=== PATIENT | male | born 1965 | race African-American/Black ===

== ENCOUNTER 2018-09-12 19:54 | Inpatient (IN) | payer OTHER ==
--- NOTE | 2018-09-13 00:14 | HP ---
"COWS - Scale Resting Pulse: 0= [place] 80 or Below Sweatin=Flushed/Facial Moisture Restless Observation: 1= Difficult to Sit Still Pupil Size: 2= Moderately Dilated (Pupils =5 mm) Bone or Joint Aches: 2= Severe Diffuse Aches Runny Nose/ Eye Tearin= Runny Nose/Eyes GI Upset > 30mins: 2= Nausea/Diarrhea Tremor Observation: 2= Slight Tremor Visible Yawning Observation: 1= 1-2x During Session Anxiety or Irritability: 1=Feels Anxious/Irritable Goose Flesh Skin: 0=Smooth Skin COWS Score: 15 CIWA Score - Admission Criteria OASAS Guidelines: Admission for Medically Managed Detox: Requires at least one of the followin. CIWA greater than 12 2. Seizures within the past 24 hours 3. Delirium tremens within the past 24 hours 4. Hallucinations within the past 24 hours 5. Acute intervention needed for co occurring medical disorder 6. Acute intervention needed for co occurring psychiatric disorder 7. Severe withdrawal that cannot be handled at a lower level of care (continued vomiting, continued diarrhea, abnormal vital signs) requiring intravenous medication and/or fluids 8. Admission ROS [facility] Chief Complaint: Here for heroin withdrawal. Allergies/Adverse Reactions: Allergies Allergy/AdvReac Type Severity Reaction Status Date / Time No Allergy Information Allergy Verified 09/13/18 00:18 Available History of Present Illness: Here for opiate detox. Heroin use since age 16, Intranasal. One overdose 5 years ago. No Narcan Kit ( Homeless) Cocaine use since age 15. Smokes Nicotine use since age 9. Alcohol use began at 13. Been weaning self off. States no drink for 2 days. Denies seizures or blackouts. Hx: Asthma - denies recent exacerbation. Sadness/depression. Denies thoughts of harming self or others. Search Terms: Joan Mo, 1965 Search Date: 09/13/2018 12:13:31 AM The Drug Utilization Report below displays all of the controlled substance prescriptions, if any, that your patient has filled in the last twelve months. The information displayed on this report is compiled from pharmacy submissions to the Department, and accurately reflects the information as submitted by the pharmacies. This report was requested by: Lisa Louise | Reference #: [id number] There are no results for the search terms that you entered. Exam Limitations: No Limitations - Ebola screening Have you traveled outside of the country in the last 21 days: No (N) Have you had contact with anyone from an Ebola affected area: No Have you been sick,other than usual withdrawal symptoms: No Do you have a fever: No - Review of Systems Constitutional: Chills, Diaphoresis EENT: reports: Blurred Vision, Nose Congestion, Dental Problems (Broken. Chews and swallows ok.) Respiratory: reports: No Symptoms reported Cardiac: reports: No Symptoms Reported GI: reports: Diarrhea (brownish, watery), Nausea : reports: No Symptoms Reported Musculoskeletal: reports: Back Pain (r/t withdrawal), Other (Leg pain r/t withdrawal) Integumentary: reports: Other (Peeling skin on feet) Neuro: reports: Numbness (Occ numbness at bottom of feet), Tremors, Unsteady Gait (r/t pain in bottom of feet - bunions) Endocrine: reports: No Symptoms Reported Hematology: reports: Blood Clots (3 years ago - went to lungs. Not on meds) Psychiatric: reports: Judgement Intact, Orientated x3, Agitated, Anxious, Depressed (Sadness/depression. Denies thoughts of harming self or others.) Patient History - Patient Medical History Hx Asthma: Yes (No recent exacerbation) Hx Cardiac Disorders: No Hx Hypertension: No HX Cerebrovascular Accident: No Hx Seizures: No Hx Liver Disease: No Hx Genitourinary Disorders: No Hx Sexually Transmitted Disorders: No Hx Thyroid Disease: No Hx Human Immunodeficiency Virus (HIV): No - Patient Surgical History Hx Orthopedic Surgery: Yes (2013 - (L) knee) Anesthesia Reaction: No - PPD History Previous Implant?: Yes Documented Results: Negative w/o proof Implanted On Prior [facility] Admission?: No PPD to be Administered?: Yes - Smoking Cessation Smoking history: Current every day smoker Have you smoked in the past 12 months: Yes Aproximately how many cigarettes per day: 20 Hx Chewing Tobacco Use: No Initiated information on smoking cessation: Yes 'Breaking Loose' booklet given: 09/13/18 - Substance & Tx. History Hx Alcohol Use: Yes Hx Substance Use: Yes Substance Use Type: Alcohol, Cocaine, Heroin Hx Substance Use Treatment: Yes (first detox) Admission Physical Exam BHS - Physical General Appearance: Yes: Disheveled, Mild Distress, Tremorous, Sweating, Anxious HEENTM: Yes: EOMI, Normocephalic, Normal Voice, FRANCISCO (Pupils = 5 mm), Pharynx Normal, Rhinorrhea Respiratory: Yes: Lungs Clear, Normal Breath Sounds, No Respiratory Distress Neck: Yes: No masses,lesions,Nodules, Supple Breast: Yes: Breast Exam Deferred Cardiology: Yes: Regular Rhythm, Regular Rate, S1, S2 Abdominal: Yes: Non Tender, Soft, Increased Bowel Sounds Genitourinary: Yes: Within Normal Limits Back: Yes: Normal Inspection Musculoskeletal: Yes: full range of Motion, Gait Steady Extremities: Yes: Normal Capillary Refill, Normal Range of Motion, Tremors ( Mild tremors) Neurological: Yes: front desk lead II-XII NML intact, Fully Oriented, Alert, Motor Strength 5/5, Normal Mood/Affect Integumentary: Yes: Normal Color, Dry (Except for increased facial moisture), Warm, Other (dry, flaky skin on feet) Lymphatic: Yes: Within Normal Limits - Diagnostic (1) Opioid dependence with withdrawal Current Visit: Yes Status: Acute (2) Nicotine dependence, uncomplicated Current Visit: Yes Status: Chronic Qualifiers: Nicotine product type: cigarettes Qualified Code(s): F17.210 - Nicotine dependence, cigarettes, uncomplicated (3) History of asthma Current Visit: Yes Status: Chronic Comment: No recent exacerbation (4) Tinea pedis Current Visit: Yes Status: Chronic Qualifiers: Laterality: bilateral Qualified Code(s): B35.3 - Tinea pedis Cleared for Admission S - Detox or Rehab [facility] Level of Care: Medically Managed Detox Regimen/Protocol: Methadone Inpatient Rehab Admission - Rehab Decision to Admit Inpatient rehab admission?: No"
[2018-09-13] MEDS ORDERED: METHADONE HCL 10 MG TABLET (FOR DETOX USE ONLY) PO ONE ×3 (03:46→23:00)
[2018-09-13] MEDS ORDERED: MAGNESIUM HYDROX 2400MG/30ML ORAL SUSPENSION 30 ML CUP PO PRN (03:46)
[2018-09-13] MEDS ORDERED: MAG HYDROX/AL HYDROX/SIMETH 30 ML UNIT-DOSE CUP PO PRN (03:46)
[2018-09-13] MEDS ORDERED: ACETAMINOPHEN 325 MG TABLET (FP) PO PRN (03:46)
[2018-09-13] MEDS ORDERED: guaiFENesin/D-METHORPHAN HB 10 ML UNIT-DOSE CUPS PO PRN (03:46)
[2018-09-13] MEDS ORDERED: LOPERAMIDE HCL 2 MG CAPSULE PO PRN (03:46)
[2018-09-13] MEDS ORDERED: MAGNESIUM CITRATE 300 ML BOTTLE PO PRN (03:46)
[2018-09-13] MEDS ORDERED: MENTHOL/PHENOL 1 EACH UD MM PRN (03:46)
[2018-09-13] MEDS ORDERED: NICOTINE POLACRILEX 2 MG GUM BC PRN (03:46)
[2018-09-13] MEDS: diazePAM 5 MG TABLET PO PRN ×4 (05:58→22:25)
[2018-09-13] MEDS: P-EPHED 60MG/TRIPROLIDI 2.5MG TABLET PO PRN ×2 (06:01→22:26)
[2018-09-13 10:19] LABS: HEMATOCRIT 40.9 % (35.4-49); HEMOGLOBIN 13.6 GM/dL (11.7-16.9); MCH 29.5 pg (25.7-33.7); MCHC 33.2 g/dl (32.0-35.9); MEAN CELL VOLUME 88.9 fl (80-96); MEAN PLT VOLUME 8.8 fl (7.5-11.1); PLATELET COUNT 246 K/MM3 (134-434); RDW 14.5 % (11.9-15.9); WHITE BLOOD COUNT 4.1 K/mm3 (4.0-10.0)
[2018-09-13] MEDS: NICOTINE 21 MG/24 HOURS TOPICAL PATCH TD SCH (10:27)
[2018-09-13] MEDS: PRENATAL VITAMINS W/ FOLIC ACID TABLET (FP) PO SCH (10:27)
[2018-09-13 10:59] LABS: ALBUMIN 3.6 g/dl (3.4-5.0); ALK PHOS 74 U/L (45-117); ANION GAP 6 MMOL/L (8-16); BILIRUBIN,TOTAL 0.3 mg/dL (0.2-1); BLOOD UREA NITROGEN 11 mg/dL (7-18); CALCIUM 8.3 mg/dL (8.5-10.1); CHLORIDE 108 mmol/L (98-107); CO2 28 mmol/L (21-32); GLUCOSE,RANDOM 113 mg/dL (74-106); POTASSIUM 4.3 mmol/L (3.5-5.1); SGOT/AST 23 U/L (15-37); SGPT/ALT 28 U/L (13-61); SODIUM 142 mmol/L (136-145); TOT PROT 6.2 g/dl (6.4-8.2)
--- NOTE | 2018-09-13 16:16 | PN ---
S COWS - Scale Resting Pulse: 1= [place] 81-100 Sweatin= Chills/Flushing Restless Observation: 1= Difficult to Sit Still Pupil Size: 1= Pupils >than Normal Bone or Joint Aches: 2= Severe Diffuse Aches Runny Nose/ Eye Tearin= Nasal Congestion GI Upset > 30mins: 1= Stomach Cramp Tremor Observation of Outstretched Hands: 1= Tremor [place], Not Seen Yawning Observation: 1= 1-2x During Session Anxiety or Irritability: 1=Feels Anxious/Irritable Goose Flesh Skin: 0=Smooth Skin COWS Score: 11 S Progress Note (SOAP) Subjective: body ache joints pain anxiety tremor sweating Objective: 09/13/18 16:16 Vital Signs Temperature 98.1 F 09/13/18 13:40 Pulse Rate 56 L 09/13/18 13:40 Respiratory Rate 18 09/13/18 13:40 Blood Pressure 122/67 09/13/18 13:40 O2 Sat by Pulse Oximetry (%) Laboratory Last Values WBC 4.1 K/mm3 (4.0-10.0) 09/13/18 07:00 RBC 4.60 M/mm3 (4.00-5.60) 09/13/18 07:00 Hgb 13.6 GM/dL (11.7-16.9) 09/13/18 07:00 Hct 40.9 % (35.4-49) 09/13/18 07:00 MCV 88.9 fl (80-96) 09/13/18 07:00 MCH 29.5 pg (25.7-33.7) 09/13/18 07:00 MCHC 33.2 g/dl (32.0-35.9) 09/13/18 07:00 RDW 14.5 % (11.9-15.9) 09/13/18 07:00 Plt Count 246 K/MM3 (134-434) 09/13/18 07:00 MPV 8.8 fl (7.5-11.1) 09/13/18 07:00 Sodium 142 mmol/L (136-145) 09/13/18 07:00 Potassium 4.3 mmol/L (3.5-5.1) 09/13/18 07:00 Chloride 108 mmol/L (98-107) H 09/13/18 07:00 Carbon Dioxide 28 mmol/L (21-32) 09/13/18 07:00 Anion Gap 6 MMOL/L (8-16) L 09/13/18 07:00 BUN 11 mg/dL (7-18) 09/13/18 07:00 Creatinine 1.0 mg/dL (0.55-1.3) 09/13/18 07:00 Creat Clearance w eGFR > 60 (>60) 09/13/18 07:00 Random Glucose 113 mg/dL (74-106) H 09/13/18 07:00 Calcium 8.3 mg/dL (8.5-10.1) L 09/13/18 07:00 Total Bilirubin 0.3 mg/dL (0.2-1) 09/13/18 07:00 AST 23 U/L (15-37) 09/13/18 07:00 ALT 28 U/L (13-61) 09/13/18 07:00 Alkaline Phosphatase 74 U/L (45-117) 09/13/18 07:00 Total Protein 6.2 g/dl (6.4-8.2) L 09/13/18 07:00 Albumin 3.6 g/dl (3.4-5.0) 09/13/18 07:00 RPR Titer Nonreactive (NONREACTIVE) 09/13/18 07:00 lab noted Assessment: 09/13/18 16:16 withdrawal sx Plan: continue detox
[2018-09-13] MEDS ORDERED: MELATONIN 5 MG TABLETS PO PRN (22:00)
[2018-09-13] MEDS: THIAMINE HCL 100 MG TABLET (FP) PO SCH (22:25)
[2018-09-14] MEDS: IBUPROFEN 400 MG TABLET (FP) PO PRN (06:01)
[2018-09-14] MEDS: diazePAM 5 MG TABLET PO PRN ×3 (08:24→22:22)
[2018-09-14] MEDS ORDERED: METHADONE HCL 10 MG TABLET (FOR DETOX USE ONLY) PO ONE (10:00)
[2018-09-14] MEDS: PRENATAL VITAMINS W/ FOLIC ACID TABLET (FP) PO SCH (10:08)
[2018-09-14] MEDS: NICOTINE 21 MG/24 HOURS TOPICAL PATCH TD SCH (10:11)
[2018-09-14 10:32] LABS: URINE APPEARANCE CLEAR; URINE BILIRUBIN NEGATIVE (<2.0 mg/dL); URINE COLOR YELLOW; URINE GLUCOSE (UA) NEGATIVE (NEGATIVE); URINE KETONE NEGATIVE (NEGATIVE); URINE LEUK ESTERASE NEGATIVE (NEGATIVE); URINE NITRITE NEGATIVE (NEGATIVE); URINE PROTEIN NEGATIVE (NEGATIVE); URINE UROBILINOGEN NEGATIVE mg/dL (0.2-1.0)
[2018-09-14] MEDS ORDERED: BACLOFEN 10 MG TABLET (FP) PO ONE (11:25)
[2018-09-14] MEDS: LIDOCAINE 5% TOPICAL PATCH TP SCH (11:52)
--- NOTE | 2018-09-14 12:09 | PN ---
BHS COWS - Scale Resting Pulse: 0= [place] 80 or Below Sweatin= Chills/Flushing Restless Observation: 0= Sits Still Pupil Size: 1= Pupils >than Normal Bone or Joint Aches: 1= Mild Discomfort Runny Nose/ Eye Tearin= Nasal Congestion GI Upset > 30mins: 0= None Tremor Observation of Outstretched Hands: 1= Tremor [place], Not Seen Yawning Observation: 1= 1-2x During Session Anxiety or Irritability: 1=Feels Anxious/Irritable Goose Flesh Skin: 0=Smooth Skin COWS Score: 7 BHS Progress Note (SOAP) Subjective: back pain joints stiffness tremor mild sweating Objective: 09/14/18 12:08 Vital Signs Temperature 97.0 F L 09/14/18 09:53 Pulse Rate 87 09/14/18 09:53 Respiratory Rate 18 09/14/18 09:53 Blood Pressure 118/77 09/14/18 09:53 O2 Sat by Pulse Oximetry (%) Laboratory Last Values WBC 4.1 K/mm3 (4.0-10.0) 09/13/18 07:00 RBC 4.60 M/mm3 (4.00-5.60) 09/13/18 07:00 Hgb 13.6 GM/dL (11.7-16.9) 09/13/18 07:00 Hct 40.9 % (35.4-49) 09/13/18 07:00 MCV 88.9 fl (80-96) 09/13/18 07:00 MCH 29.5 pg (25.7-33.7) 09/13/18 07:00 MCHC 33.2 g/dl (32.0-35.9) 09/13/18 07:00 RDW 14.5 % (11.9-15.9) 09/13/18 07:00 Plt Count 246 K/MM3 (134-434) 09/13/18 07:00 MPV 8.8 fl (7.5-11.1) 09/13/18 07:00 Sodium 142 mmol/L (136-145) 09/13/18 07:00 Potassium 4.3 mmol/L (3.5-5.1) 09/13/18 07:00 Chloride 108 mmol/L (98-107) H 09/13/18 07:00 Carbon Dioxide 28 mmol/L (21-32) 09/13/18 07:00 Anion Gap 6 MMOL/L (8-16) L 09/13/18 07:00 BUN 11 mg/dL (7-18) 09/13/18 07:00 Creatinine 1.0 mg/dL (0.55-1.3) 09/13/18 07:00 Creat Clearance w eGFR > 60 (>60) 09/13/18 07:00 Random Glucose 113 mg/dL (74-106) H 09/13/18 07:00 Calcium 8.3 mg/dL (8.5-10.1) L 09/13/18 07:00 Total Bilirubin 0.3 mg/dL (0.2-1) 09/13/18 07:00 AST 23 U/L (15-37) 09/13/18 07:00 ALT 28 U/L (13-61) 09/13/18 07:00 Alkaline Phosphatase 74 U/L (45-117) 09/13/18 07:00 Total Protein 6.2 g/dl (6.4-8.2) L 09/13/18 07:00 Albumin 3.6 g/dl (3.4-5.0) 09/13/18 07:00 Urine Color Yellow 09/14/18 07:00 Urine Appearance Clear 09/14/18 07:00 Urine pH 7.0 (5.0-8.0) 09/14/18 07:00 Ur Specific [place] 1.015 (1.010-1.035) 09/14/18 07:00 Urine Protein Negative (NEGATIVE) 09/14/18 07:00 Urine Glucose (UA) Negative (NEGATIVE) 09/14/18 07:00 Urine Ketones Negative (NEGATIVE) 09/14/18 07:00 Urine Blood Negative (NEGATIVE) 09/14/18 07:00 Urine Nitrite Negative (NEGATIVE) 09/14/18 07:00 Urine Bilirubin Negative (<2.0 mg/dL) 09/14/18 07:00 Urine Urobilinogen Negative mg/dL (0.2-1.0) 09/14/18 07:00 Ur Leukocyte Esterase Negative (NEGATIVE) 09/14/18 07:00 RPR Titer Nonreactive (NONREACTIVE) 09/13/18 07:00 lab noted Assessment: 09/14/18 12:08 withdrawal sx Plan: continue detox lidocaine
--- NOTE | 2018-09-14 14:05 | EKG ---
Test Reason : Blood Pressure : / mmHG Vent. Rate : 050 BPM Atrial Rate : 050 BPM P-R Int : 158 ms QRS Dur : 084 ms QT Int : 460 ms P-R-T Axes : 057 063 051 degrees QTc Int : 419 ms SINUS BRADYCARDIA WITH SINUS ARRHYTHMIA OTHERWISE NORMAL ECG NO PREVIOUS ECGS AVAILABLE Confirmed by CODY POLLOCK MD ([id number]) on 09/14/2018 2:05:33 PM Referred By: Confirmed By:CODY POLLOCK MD
[2018-09-14 17:35] VITALS: BMI 24.4
[2018-09-14] MEDS: LIDOCAINE PATCH REMOVAL MC SCH (22:22)
[2018-09-14] MEDS: THIAMINE HCL 100 MG TABLET (FP) PO SCH (22:22)
[2018-09-14] MEDS: P-EPHED 60MG/TRIPROLIDI 2.5MG TABLET PO PRN (22:23)
[2018-09-15] MEDS ORDERED: METHADONE HCL 5 MG TABLET (FOR DETOX USE ONLY) PO ONE (10:00)
[2018-09-15] MEDS: PRENATAL VITAMINS W/ FOLIC ACID TABLET (FP) PO SCH (10:17)
[2018-09-15] MEDS: LIDOCAINE 5% TOPICAL PATCH TP SCH (10:17)
[2018-09-15] MEDS: diazePAM 5 MG TABLET PO PRN (10:18)
[2018-09-15] MEDS: NICOTINE 21 MG/24 HOURS TOPICAL PATCH TD SCH (10:18)
[2018-09-15] MEDS ORDERED: ALBUTEROL SO4 2.5/IPRATROPIUM 0.5 INH SOL 3 ML VIAL.NEB. NEB PRN (15:10)
--- NOTE | 2018-09-15 17:28 | PN ---
BHS Progress Note (SOAP) Subjective: Body Aches, Fatigue, Tremors. Objective: PATIENT A & O X 3. IN NO ACUTE DISTRESS. 09/15/18 17:27 Vital Signs Temperature 96.4 F L 09/15/18 09:36 Pulse Rate 75 09/15/18 09:36 Respiratory Rate 17 09/15/18 09:36 Blood Pressure 102/66 09/15/18 09:36 O2 Sat by Pulse Oximetry (%) Laboratory Tests 09/13/18 09/13/18 09/13/18 07:00 07:00 07:00 WBC 4.1 RBC 4.60 Hgb 13.6 Hct 40.9 MCV 88.9 MCH 29.5 MCHC 33.2 RDW 14.5 Plt Count 246 MPV 8.8 Sodium 142 Potassium 4.3 Chloride 108 H Carbon Dioxide 28 Anion Gap 6 L BUN 11 Creatinine 1.0 Creat Clearance w eGFR > 60 Random Glucose 113 H Calcium 8.3 L Total Bilirubin 0.3 AST 23 ALT 28 Alkaline Phosphatase 74 Total Protein 6.2 L Albumin 3.6 Urine Color Urine Appearance Urine pH Ur Specific [place] Urine Protein Urine Glucose (UA) Urine Ketones Urine Blood Urine Nitrite Urine Bilirubin Urine Urobilinogen Ur Leukocyte Esterase RPR Titer Nonreactive 09/14/18 07:00 WBC RBC Hgb Hct MCV MCH MCHC RDW Plt Count MPV Sodium Potassium Chloride Carbon Dioxide Anion Gap BUN Creatinine Creat Clearance w eGFR Random Glucose Calcium Total Bilirubin AST ALT Alkaline Phosphatase Total Protein Albumin Urine Color Yellow Urine Appearance Clear Urine pH 7.0 Ur Specific [place] 1.015 Urine Protein Negative Urine Glucose (UA) Negative Urine Ketones Negative Urine Blood Negative Urine Nitrite Negative Urine Bilirubin Negative Urine Urobilinogen Negative Ur Leukocyte Esterase Negative RPR Titer LABS NOTED. Assessment: 09/15/18 17:27 WITHDRAWAL SYMPTOMS. Plan: CONTINUE DETOX. INCREASE DAILY PO FLUID INTAKE. ENCOURAGE AMBULATION.
[2018-09-15] MEDS: THIAMINE HCL 100 MG TABLET (FP) PO SCH (22:59)
[2018-09-15] MEDS: LIDOCAINE PATCH REMOVAL MC SCH (22:59)
[2018-09-16] MEDS ORDERED: METHADONE HCL 5 MG TABLET (FOR DETOX USE ONLY) PO ONE (10:00)
[2018-09-16] MEDS: LIDOCAINE 5% TOPICAL PATCH TP SCH (10:19)
[2018-09-16] MEDS: PRENATAL VITAMINS W/ FOLIC ACID TABLET (FP) PO SCH (10:20)
[2018-09-16] MEDS: P-EPHED 60MG/TRIPROLIDI 2.5MG TABLET PO PRN (10:23)
[2018-09-16] MEDS: NICOTINE 21 MG/24 HOURS TOPICAL PATCH TD SCH (10:23)
--- NOTE | 2018-09-16 15:08 | CONSULT ---
[facility] Psychiatric Consult - Data Date of interview: 09/16/18 Admission source: [facility] Identifying data: First admission to [facility] for this 53 y/o AA male self- referred for rehabilitation (alcohol, cocaine, heroin). Interviewed at [address] [place] [address]. Patient is single, a father of six, homeless for past two years, unemployed and reportedly deprived of any source of income. Substance Abuse History: Confirmed by the patient. Details in current [facility] report : Smoking history: Current every day smoker. Have you smoked in the past 12 months: Yes. Aproximately how many cigarettes per day: 20. Hx Chewing Tobacco Use: No. Initiated information on smoking cessation: Yes. 'Breaking Loose' booklet given: 09/13/18. - Substance & Tx. History. Hx Alcohol Use: Yes. Hx Substance Use: Yes. Substance Use Type: Alcohol, Cocaine, Heroin. Hx Substance Use Treatment: Yes (first detox) Medical History: Chronic lumbar pain and a distant history of orthosurgery ( left knee in 2012). Psychiatric History: Patient reports a history of " a couple of " psychiatric hospitalizations in the " 1970's + 1979's ", all at the [facility] in [place]. Diagnosed with MDD + Anxiety Disorder. Treated, in the past, with mirtazapine and xanax. Not taken since 2014 as per self-report. Lost to psychiatric OPD care for 4-5 years. Patient attributes his non- adherence to loss of Medicaid benefits. Admits to a history of two suicide attempts (1994 : deliberate exposure to gas / hanging attempt in 2004). Physical/Sexual Abuse/Trauma History: Stressors : of mother in 2014, homicide of one son in [place], homelessness, chronic unemployment, lack of social benefits, no family support, history of incarcerations (jailed for 16 years in total), pending court case (outcome uncertain) and addictions. Additional Comment: Toxicology : unavailable. Mental Status Exam - Mental Status Exam Alert and Oriented to: Time, Place, Person Cognitive Function: Good Patient Appearance: Well Groomed Mood: Nervous, Anxious Affect: Mood Congruent, Constricted Patient Behavior: Fatigued, Cooperative Speech Pattern: Clear, Appropriate Voice Loudness: Normal Thought Process: Goal Oriented Thought Disorder: Not Present Hallucinations: Denies Suicidal Ideation: Denies Homicidal Ideation: Denies Insight/Judgement: Poor Sleep: Poorly, Difficulty falling asleep Appetite: Good Muscle strength/Tone: Normal Gait/Station: Normal Psychiatric Findings - Problem List ([place] 1, 2,3) (1) Alcohol dependence Current Visit: Yes Status: Chronic (2) Opioid dependence with withdrawal Current Visit: Yes Status: Acute (3) Nicotine dependence, uncomplicated Current Visit: Yes Status: Chronic Qualifiers: Nicotine product type: cigarettes Qualified Code(s): F17.210 - Nicotine dependence, cigarettes, uncomplicated (4) Cocaine dependence Current Visit: Yes Status: Chronic (5) Substance induced mood disorder Current Visit: Yes Status: Chronic (6) Insomnia Current Visit: Yes Status: Chronic (7) Non-compliance Current Visit: Yes Status: Chronic - Initial Treatment Plan Initial Treatment Plan: Psychoeducation. Sleep hygiene. Detoxification. Support. AA/NA meetings. Remeron 7.5 mg po hs. Side effects/benefits discussed with the patient. Mr Mo expresses his agreement with this plan of care. Observation.
--- NOTE | 2018-09-16 16:21 | PN ---
BHS Progress Note (SOAP) Subjective: body Aches, Anxious. Objective: PATIENT A & O X 3, OBSERVED AMBULATING ON UNIT. IN NO ACUTE DISTRESS. 09/16/18 16:20 Vital Signs Temperature 98.6 F 09/16/18 13:10 Pulse Rate 89 09/16/18 13:10 Respiratory Rate 18 09/16/18 13:10 Blood Pressure 112/75 09/16/18 13:10 O2 Sat by Pulse Oximetry (%) Laboratory Tests 09/13/18 09/13/18 09/13/18 07:00 07:00 07:00 WBC 4.1 RBC 4.60 Hgb 13.6 Hct 40.9 MCV 88.9 MCH 29.5 MCHC 33.2 RDW 14.5 Plt Count 246 MPV 8.8 Sodium 142 Potassium 4.3 Chloride 108 H Carbon Dioxide 28 Anion Gap 6 L BUN 11 Creatinine 1.0 Creat Clearance w eGFR > 60 Random Glucose 113 H Calcium 8.3 L Total Bilirubin 0.3 AST 23 ALT 28 Alkaline Phosphatase 74 Total Protein 6.2 L Albumin 3.6 Urine Color Urine Appearance Urine pH Ur Specific [place] Urine Protein Urine Glucose (UA) Urine Ketones Urine Blood Urine Nitrite Urine Bilirubin Urine Urobilinogen Ur Leukocyte Esterase RPR Titer Nonreactive 09/14/18 07:00 WBC RBC Hgb Hct MCV MCH MCHC RDW Plt Count MPV Sodium Potassium Chloride Carbon Dioxide Anion Gap BUN Creatinine Creat Clearance w eGFR Random Glucose Calcium Total Bilirubin AST ALT Alkaline Phosphatase Total Protein Albumin Urine Color Yellow Urine Appearance Clear Urine pH 7.0 Ur Specific [place] 1.015 Urine Protein Negative Urine Glucose (UA) Negative Urine Ketones Negative Urine Blood Negative Urine Nitrite Negative Urine Bilirubin Negative Urine Urobilinogen Negative Ur Leukocyte Esterase Negative RPR Titer LABS NOTED. Assessment: 09/16/18 16:21 WITHDRAWAL SYMPTOMS. Plan: CONTINUE DETOX.
[2018-09-16] MEDS: CYCLOBENZAPRINE HCL 10 MG TABLET (FP) PO PRN (22:51)
[2018-09-16] MEDS: LIDOCAINE PATCH REMOVAL MC SCH (22:51)
[2018-09-16] MEDS: THIAMINE HCL 100 MG TABLET (FP) PO SCH (22:51)
[2018-09-17] MEDS ORDERED: METHADONE HCL 10 MG TABLET (FOR DETOX USE ONLY) PO ONE (10:00)
[2018-09-17] MEDS: PRENATAL VITAMINS W/ FOLIC ACID TABLET (FP) PO SCH (10:17)
[2018-09-17] MEDS: NICOTINE 21 MG/24 HOURS TOPICAL PATCH TD SCH (10:18)
[2018-09-17] MEDS: LIDOCAINE 5% TOPICAL PATCH TP SCH (10:49)
--- NOTE | 2018-09-17 14:57 | PN ---
BHS COWS - Scale Resting Pulse: 0= [place] 80 or Below Sweatin= Chills/Flushing Restless Observation: 0= Sits Still Pupil Size: 0= Normal to Room Light Bone or Joint Aches: 1= Mild Discomfort Runny Nose/ Eye Tearin= Nasal Congestion GI Upset > 30mins: 1= Stomach Cramp Tremor Observation of Outstretched Hands: 0= None Yawning Observation: 0= None Anxiety or Irritability: 0= None Goose Flesh Skin: 0=Smooth Skin COWS Score: 4 BHS Progress Note (SOAP) Subjective: feeling better less tremor mild sweating little body aches Objective: 09/17/18 14:58 Vital Signs Temperature 98 F 09/17/18 13:16 Pulse Rate 76 09/17/18 13:16 Respiratory Rate 18 09/17/18 13:16 Blood Pressure 103/70 09/17/18 13:16 O2 Sat by Pulse Oximetry (%) Laboratory Last Values WBC 4.1 K/mm3 (4.0-10.0) 09/13/18 07:00 RBC 4.60 M/mm3 (4.00-5.60) 09/13/18 07:00 Hgb 13.6 GM/dL (11.7-16.9) 09/13/18 07:00 Hct 40.9 % (35.4-49) 09/13/18 07:00 MCV 88.9 fl (80-96) 09/13/18 07:00 MCH 29.5 pg (25.7-33.7) 09/13/18 07:00 MCHC 33.2 g/dl (32.0-35.9) 09/13/18 07:00 RDW 14.5 % (11.9-15.9) 09/13/18 07:00 Plt Count 246 K/MM3 (134-434) 09/13/18 07:00 MPV 8.8 fl (7.5-11.1) 09/13/18 07:00 Sodium 142 mmol/L (136-145) 09/13/18 07:00 Potassium 4.3 mmol/L (3.5-5.1) 09/13/18 07:00 Chloride 108 mmol/L (98-107) H 09/13/18 07:00 Carbon Dioxide 28 mmol/L (21-32) 09/13/18 07:00 Anion Gap 6 MMOL/L (8-16) L 09/13/18 07:00 BUN 11 mg/dL (7-18) 09/13/18 07:00 Creatinine 1.0 mg/dL (0.55-1.3) 09/13/18 07:00 Creat Clearance w eGFR > 60 (>60) 09/13/18 07:00 Random Glucose 113 mg/dL (74-106) H 09/13/18 07:00 Calcium 8.3 mg/dL (8.5-10.1) L 09/13/18 07:00 Total Bilirubin 0.3 mg/dL (0.2-1) 09/13/18 07:00 AST 23 U/L (15-37) 09/13/18 07:00 ALT 28 U/L (13-61) 09/13/18 07:00 Alkaline Phosphatase 74 U/L (45-117) 09/13/18 07:00 Total Protein 6.2 g/dl (6.4-8.2) L 09/13/18 07:00 Albumin 3.6 g/dl (3.4-5.0) 09/13/18 07:00 Urine Color Yellow 09/14/18 07:00 Urine Appearance Clear 09/14/18 07:00 Urine pH 7.0 (5.0-8.0) 09/14/18 07:00 Ur Specific [place] 1.015 (1.010-1.035) 09/14/18 07:00 Urine Protein Negative (NEGATIVE) 09/14/18 07:00 Urine Glucose (UA) Negative (NEGATIVE) 09/14/18 07:00 Urine Ketones Negative (NEGATIVE) 09/14/18 07:00 Urine Blood Negative (NEGATIVE) 09/14/18 07:00 Urine Nitrite Negative (NEGATIVE) 09/14/18 07:00 Urine Bilirubin Negative (<2.0 mg/dL) 09/14/18 07:00 Urine Urobilinogen Negative mg/dL (0.2-1.0) 09/14/18 07:00 Ur Leukocyte Esterase Negative (NEGATIVE) 09/14/18 07:00 RPR Titer Nonreactive (NONREACTIVE) 09/13/18 07:00 lab noted Assessment: 09/17/18 14:59 withdrawal sx Plan: continue detox
[2018-09-17] MEDS: CYCLOBENZAPRINE HCL 10 MG TABLET (FP) PO PRN (22:17)
[2018-09-17] MEDS: THIAMINE HCL 100 MG TABLET (FP) PO SCH (22:17)
[2018-09-17] MEDS: LIDOCAINE PATCH REMOVAL MC SCH (22:18)
[2018-09-18] MEDS: IBUPROFEN 400 MG TABLET (FP) PO PRN (05:32)
[2018-09-18] MEDS ORDERED: METHADONE HCL 5 MG TABLET (FOR DETOX USE ONLY) PO ONE (06:00)
[2018-09-18] MEDS: PRENATAL VITAMINS W/ FOLIC ACID TABLET (FP) PO SCH (09:20)
[2018-09-18] MEDS: NICOTINE 21 MG/24 HOURS TOPICAL PATCH TD SCH (09:20)
[2018-09-18 09:55] VITALS: BP 111/81; PULSE 85; TEMP 97.1
[2018-09-18] MEDS: LIDOCAINE 5% TOPICAL PATCH TP SCH (10:24)
--- NOTE | 2018-09-18 11:23 | DS ---
[facility] Detox Discharge Summary Admission Date: 09/12/18 Discharge Date: 09/18/18 - History Present History: Opioid Dependence Additional Comments: 53 years old male admitted on 09/17/18 for opiate withdrawal stabilization completed opiate detox regimen [facility] Physical Exam Results Vital Signs: Vital Signs Temperature 97.1 F L 09/18/18 09:54 Pulse Rate 85 09/18/18 09:54 Respiratory Rate 18 09/18/18 09:54 Blood Pressure 111/81 09/18/18 09:54 O2 Sat by Pulse Oximetry (%) Pertinent Admission Physical Exam Findings: opiate withdrawal sx Laboratory Last Values WBC 4.1 K/mm3 (4.0-10.0) 09/13/18 07:00 RBC 4.60 M/mm3 (4.00-5.60) 09/13/18 07:00 Hgb 13.6 GM/dL (11.7-16.9) 09/13/18 07:00 Hct 40.9 % (35.4-49) 09/13/18 07:00 MCV 88.9 fl (80-96) 09/13/18 07:00 MCH 29.5 pg (25.7-33.7) 09/13/18 07:00 MCHC 33.2 g/dl (32.0-35.9) 09/13/18 07:00 RDW 14.5 % (11.9-15.9) 09/13/18 07:00 Plt Count 246 K/MM3 (134-434) 09/13/18 07:00 MPV 8.8 fl (7.5-11.1) 09/13/18 07:00 Sodium 142 mmol/L (136-145) 09/13/18 07:00 Potassium 4.3 mmol/L (3.5-5.1) 09/13/18 07:00 Chloride 108 mmol/L (98-107) H 09/13/18 07:00 Carbon Dioxide 28 mmol/L (21-32) 09/13/18 07:00 Anion Gap 6 MMOL/L (8-16) L 09/13/18 07:00 BUN 11 mg/dL (7-18) 09/13/18 07:00 Creatinine 1.0 mg/dL (0.55-1.3) 09/13/18 07:00 Creat Clearance w eGFR > 60 (>60) 09/13/18 07:00 Random Glucose 113 mg/dL (74-106) H 09/13/18 07:00 Calcium 8.3 mg/dL (8.5-10.1) L 09/13/18 07:00 Total Bilirubin 0.3 mg/dL (0.2-1) 09/13/18 07:00 AST 23 U/L (15-37) 09/13/18 07:00 ALT 28 U/L (13-61) 09/13/18 07:00 Alkaline Phosphatase 74 U/L (45-117) 09/13/18 07:00 Total Protein 6.2 g/dl (6.4-8.2) L 09/13/18 07:00 Albumin 3.6 g/dl (3.4-5.0) 09/13/18 07:00 Urine Color Yellow 09/14/18 07:00 Urine Appearance Clear 09/14/18 07:00 Urine pH 7.0 (5.0-8.0) 09/14/18 07:00 Ur Specific [place] 1.015 (1.010-1.035) 09/14/18 07:00 Urine Protein Negative (NEGATIVE) 09/14/18 07:00 Urine Glucose (UA) Negative (NEGATIVE) 09/14/18 07:00 Urine Ketones Negative (NEGATIVE) 09/14/18 07:00 Urine Blood Negative (NEGATIVE) 09/14/18 07:00 Urine Nitrite Negative (NEGATIVE) 09/14/18 07:00 Urine Bilirubin Negative (<2.0 mg/dL) 09/14/18 07:00 Urine Urobilinogen Negative mg/dL (0.2-1.0) 09/14/18 07:00 Ur Leukocyte Esterase Negative (NEGATIVE) 09/14/18 07:00 RPR Titer Nonreactive (NONREACTIVE) 09/13/18 07:00 lab noted - Treatment Hospital Course: Detox Protocol Followed, Detoxed Safely, Responded well, Discharged Condition Good, Rehab Referral Accepted Patient has Accepted a Rehab Referral to: [facility] - Medication Discharge Medications: Ambulatory Orders Naloxone HCl [Narcan] 4 mg NS ASDIR #1 spray 09/17/18 - Diagnosis (1) Opioid dependence with withdrawal Current Visit: Yes Status: Acute (2) Nicotine dependence, uncomplicated Current Visit: Yes Status: Acute Qualifiers: Nicotine product type: cigarettes Qualified Code(s): F17.210 - Nicotine dependence, cigarettes, uncomplicated (3) Substance induced mood disorder Current Visit: Yes Status: Suspected - AMA Did Patient Leave Against Medical Advice: No
== END 2018-09-18 13:04 | disposition other institution (70) | DRG 773 ==
LOC: YASAS 19:54 → Y3N 23:32
PROVIDERS: ADMIT Surgery; ATTEND Surgery
PROC: HZ2ZZZZ Detoxification Services for Substance Abuse Treatment (ICD-10-PCS; principal; 2018-09-12)
DX: F11.23 Opioid dependence with withdrawal (principal); F10.230 Alcohol dependence with withdrawal, uncomplicated; F14.20 Cocaine dependence, uncomplicated; F17.210 Nicotine dependence, cigarettes, uncomplicated; F19.24 Other psychoactive substance dependence with psychoactive substance-induced mood disorder; G47.00 Insomnia, unspecified; J45.909 Unspecified asthma, uncomplicated; Z91.19 Patient's noncompliance with other medical treatment and regimen
CPT/HCPCS: 36415; 80053; 81003; 85027; 86593; 93005; 93010; J0475

== ENCOUNTER 2018-09-18 13:23 | Inpatient (IN) | payer OTHER ==
--- NOTE | 2018-09-18 11:24 | HP ---
[facility] Rehab Assess/Revision - Admission History Admitted to Rehab from: [facility] Date of Admission to Rehab: 09/18/18 - Findings Detox History & Physical reviewed: Yes Concur with findings: Yes Comments/Additional Findings: transferred from detox to rehab admission as per protocol Inpatient Rehab Admission - Rehab Decision to Admit Inpatient rehab admission?: Yes - Initial Determination Are CD services needed?: Yes Free of communicable disease: Yes Not in need of hospitalization: Yes - Rehab Admission Criteria Previous failed treatment: Yes Poor recovery environment: Yes Comorbidities: Yes Lacks judgement: No Patient is meeting Inpatient Rehab admission criteria:: Yes
[~2018-09-18 13:23] MED LIST: ACETAMINOPHEN 325 MG TABLET (FP) PO PRN; LOPERAMIDE HCL 2 MG CAPSULE PO PRN; MAG HYDROX/AL HYDROX/SIMETH 30 ML UNIT-DOSE CUP PO PRN; MAGNESIUM CITRATE 300 ML BOTTLE PO PRN; MAGNESIUM HYDROX 2400MG/30ML ORAL SUSPENSION 30 ML CUP PO PRN; MENTHOL/PHENOL 1 EACH UD MM PRN; NICOTINE POLACRILEX 2 MG GUM BUC PRN; guaiFENesin 200 MG/10 ML 10 ML UNIT-DOSE CUPS PO PRN
[2018-09-18] MEDS: LIDOCAINE 5% TOPICAL PATCH TP SCH (17:02)
[2018-09-18] MEDS: THIAMINE HCL 100 MG TABLET (FP) PO SCH (21:50)
[2018-09-18] MEDS: MELATONIN 5 MG TABLETS PO PRN (21:50)
[2018-09-19] MEDS: PRENATAL VITAMINS W/ FOLIC ACID TABLET (FP) PO SCH (09:01)
[2018-09-19] MEDS: LIDOCAINE 5% TOPICAL PATCH TP SCH (09:01)
[2018-09-19] MEDS: IBUPROFEN 400 MG TABLET (FP) PO PRN (09:02)
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
[2018-09-19] MEDS: LIDOCAINE PATCH REMOVAL MC SCH (21:39)
[2018-09-19] MEDS: THIAMINE HCL 100 MG TABLET (FP) PO SCH (21:40)
[2018-09-19] MEDS: MIRTAZAPINE 30 MG TABLET (FP) PO SCH (21:40)
[2018-09-20] MEDS: PRENATAL VITAMINS W/ FOLIC ACID TABLET (FP) PO SCH (09:53)
[2018-09-20] MEDS: LIDOCAINE 5% TOPICAL PATCH TP SCH (09:53)
[2018-09-20] MEDS: IBUPROFEN 400 MG TABLET (FP) PO PRN (09:54)
[2018-09-20] MEDS: MIRTAZAPINE 30 MG TABLET (FP) PO SCH (21:57)
[2018-09-20] MEDS: THIAMINE HCL 100 MG TABLET (FP) PO SCH (21:57)
[2018-09-20] MEDS: LIDOCAINE PATCH REMOVAL MC SCH (21:58)
[2018-09-20] MEDS: P-EPHED 60MG/TRIPROLIDI 2.5MG TABLET PO PRN (21:58)
[2018-09-21] MEDS: IBUPROFEN 400 MG TABLET (FP) PO PRN ×2 (09:36→14:13)
[2018-09-21] MEDS: PRENATAL VITAMINS W/ FOLIC ACID TABLET (FP) PO SCH (09:36)
[2018-09-21] MEDS: LIDOCAINE 5% TOPICAL PATCH TP SCH (09:36)
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
[2018-09-21] MEDS ORDERED: cloNIDine HCL 0.1 MG TABLET PO ONE (11:10)
[2018-09-21] MEDS: TOLNAFTATE 1% CREAM 15 GM TUBE TP SCH ×2 (12:20→21:39)
[2018-09-21] MEDS: CYCLOBENZAPRINE HCL 10 MG TABLET (FP) PO SCH ×2 (14:13→21:38)
[2018-09-21] MEDS ORDERED: MIRTAZAPINE 15 MG TABLET (FP) ONE (20:42)
[2018-09-21] MEDS: cloNIDine HCL 0.1 MG TABLET PO SCH (21:38)
[2018-09-21] MEDS: THIAMINE HCL 100 MG TABLET (FP) PO SCH (21:38)
[2018-09-21] MEDS: MIRTAZAPINE 30 MG TABLET (FP) PO SCH (21:39)
[2018-09-21] MEDS: LIDOCAINE PATCH REMOVAL MC SCH (21:39)
[2018-09-22] MEDS: CYCLOBENZAPRINE HCL 10 MG TABLET (FP) PO SCH ×3 (06:31→22:06)
[2018-09-22] MEDS: TOLNAFTATE 1% CREAM 15 GM TUBE TP SCH ×2 (10:42→22:06)
[2018-09-22] MEDS: NICOTINE 14 MG/24 HOURS TOPICAL PATCH TD PRN (10:42)
[2018-09-22] MEDS: PRENATAL VITAMINS W/ FOLIC ACID TABLET (FP) PO SCH (10:42)
[2018-09-22] MEDS: cloNIDine HCL 0.1 MG TABLET PO SCH ×2 (10:42→22:06)
[2018-09-22] MEDS: LIDOCAINE 5% TOPICAL PATCH TP SCH (10:43)
[2018-09-22] MEDS: IBUPROFEN 400 MG TABLET (FP) PO PRN (10:44)
[2018-09-22] MEDS: THIAMINE HCL 100 MG TABLET (FP) PO SCH (22:06)
[2018-09-22] MEDS: LIDOCAINE PATCH REMOVAL MC SCH (22:06)
[2018-09-22] MEDS: MIRTAZAPINE 30 MG TABLET (FP) PO SCH (22:07)
[2018-09-23] MEDS: CYCLOBENZAPRINE HCL 10 MG TABLET (FP) PO SCH ×3 (06:21→21:54)
[2018-09-23] MEDS: PRENATAL VITAMINS W/ FOLIC ACID TABLET (FP) PO SCH (10:35)
[2018-09-23] MEDS: LIDOCAINE 5% TOPICAL PATCH TP SCH (10:35)
[2018-09-23] MEDS: cloNIDine HCL 0.1 MG TABLET PO SCH ×2 (10:35→21:54)
[2018-09-23] MEDS: TOLNAFTATE 1% CREAM 15 GM TUBE TP SCH ×2 (10:35→21:55)
[2018-09-23] MEDS: NICOTINE 14 MG/24 HOURS TOPICAL PATCH TD PRN (10:35)
[2018-09-23] MEDS: THIAMINE HCL 100 MG TABLET (FP) PO SCH (21:54)
[2018-09-23] MEDS: MIRTAZAPINE 30 MG TABLET (FP) PO SCH (21:54)
[2018-09-23] MEDS: LIDOCAINE PATCH REMOVAL MC SCH (21:55)
[2018-09-24] MEDS: CYCLOBENZAPRINE HCL 10 MG TABLET (FP) PO SCH ×3 (06:29→21:45)
[2018-09-24] MEDS: TOLNAFTATE 1% CREAM 15 GM TUBE TP SCH ×2 (10:52→21:46)
[2018-09-24] MEDS: LIDOCAINE 5% TOPICAL PATCH TP SCH (10:52)
[2018-09-24] MEDS: PRENATAL VITAMINS W/ FOLIC ACID TABLET (FP) PO SCH (10:52)
[2018-09-24] MEDS: NICOTINE 14 MG/24 HOURS TOPICAL PATCH TD PRN (10:52)
[2018-09-24] MEDS: cloNIDine HCL 0.1 MG TABLET PO SCH ×2 (10:53→21:46)
[2018-09-24] MEDS: MIRTAZAPINE 30 MG TABLET (FP) PO SCH (21:46)
[2018-09-24] MEDS: LIDOCAINE PATCH REMOVAL MC SCH (21:46)
[2018-09-24] MEDS: THIAMINE HCL 100 MG TABLET (FP) PO SCH (21:46)
[2018-09-25] MEDS: CYCLOBENZAPRINE HCL 10 MG TABLET (FP) PO SCH ×3 (06:07→21:58)
[2018-09-25] MEDS: PRENATAL VITAMINS W/ FOLIC ACID TABLET (FP) PO SCH (10:53)
[2018-09-25] MEDS: LIDOCAINE 5% TOPICAL PATCH TP SCH (10:54)
[2018-09-25] MEDS: cloNIDine HCL 0.1 MG TABLET PO SCH ×2 (10:54→21:57)
[2018-09-25] MEDS: TOLNAFTATE 1% CREAM 15 GM TUBE TP SCH ×2 (10:55→21:58)
[2018-09-25] MEDS: NICOTINE 14 MG/24 HOURS TOPICAL PATCH TD PRN (10:55)
[2018-09-25] MEDS: MIRTAZAPINE 30 MG TABLET (FP) PO SCH (21:57)
[2018-09-25] MEDS: THIAMINE HCL 100 MG TABLET (FP) PO SCH (21:58)
[2018-09-25] MEDS: LIDOCAINE PATCH REMOVAL MC SCH (21:58)
[2018-09-26] MEDS: CYCLOBENZAPRINE HCL 10 MG TABLET (FP) PO SCH ×3 (06:46→21:59)
[2018-09-26] MEDS: LIDOCAINE 5% TOPICAL PATCH TP SCH (11:03)
[2018-09-26] MEDS: cloNIDine HCL 0.1 MG TABLET PO SCH ×2 (11:05→21:59)
[2018-09-26] MEDS: TOLNAFTATE 1% CREAM 15 GM TUBE TP SCH ×2 (11:05→22:00)
[2018-09-26] MEDS: NICOTINE 14 MG/24 HOURS TOPICAL PATCH TD PRN (11:05)
[2018-09-26] MEDS: PRENATAL VITAMINS W/ FOLIC ACID TABLET (FP) PO SCH (11:05)
--- NOTE | 2018-09-26 13:03 | PN ---
[facility] Progress Note Note: STILL C/O BACK PAIN AND NOT RELIEVED BY LIDOCAINE PATCH. REQUESTING ANALGESIC BALM. AMBULATING WITH STEADY GAIT. Vital Signs (72 hours) 09/23/18 09/24/18 09/24/18 22:00 00:30 03:30 Temperature Pulse Rate 69 Respiratory 18 18 Rate Blood Pressure 131/86 09/24/18 09/24/18 09/24/18 07:01 09:17 21:23 Temperature 97.8 F Pulse Rate 77 95 H 91 H Respiratory 18 18 18 Rate Blood Pressure 120/77 125/75 121/82 09/25/18 09/25/18 09/25/18 00:30 03:30 07:27 Temperature 98.0 F Pulse Rate 71 Respiratory 18 18 18 Rate Blood Pressure 132/80 09/25/18 09/25/18 09/26/18 10:00 20:40 00:30 Temperature Pulse Rate 85 89 Respiratory 18 18 Rate Blood Pressure 127/85 125/79 09/26/18 09/26/18 03:30 06:56 Temperature 97.7 F Pulse Rate 100 H Respiratory 18 18 Rate Blood Pressure 141/67 Laboratory Tests 09/19/18 09/19/18 08:30 08:30 Hep C Ab Diagnostic <0.1 HIV 1&2 Antibody Screen Negative HIV P24 Antigen Negative NAD PLAN;CONTINUE PAIN PATCH ANALGESIC BALM DIRECTED
[2018-09-26] MEDS: LIDOCAINE PATCH REMOVAL MC SCH (21:59)
[2018-09-26] MEDS: THIAMINE HCL 100 MG TABLET (FP) PO SCH (21:59)
[2018-09-26] MEDS: MIRTAZAPINE 30 MG TABLET (FP) PO SCH (21:59)
[2018-09-26] MEDS: METHYL SALICYLATE/MENTHOL OINT 30 GM TUBE TP SCH (22:00)
[2018-09-27] MEDS: CYCLOBENZAPRINE HCL 10 MG TABLET (FP) PO SCH ×3 (06:17→21:50)
[2018-09-27] MEDS: cloNIDine HCL 0.1 MG TABLET PO SCH ×2 (10:46→21:50)
[2018-09-27] MEDS: LIDOCAINE 5% TOPICAL PATCH TP SCH (10:46)
[2018-09-27] MEDS: TOLNAFTATE 1% CREAM 15 GM TUBE TP SCH ×2 (10:46→21:51)
[2018-09-27] MEDS: PRENATAL VITAMINS W/ FOLIC ACID TABLET (FP) PO SCH (10:46)
[2018-09-27] MEDS: NICOTINE 14 MG/24 HOURS TOPICAL PATCH TD PRN (10:47)
--- NOTE | 2018-09-27 15:20 | PN ---
[facility] Progress Note Note: NURSE REPORTS PT C/O INSOMNIA AND "REMERON NOT WORKING". REQUESTING TO SEE THE PSYCH AGAIN. Vital Signs (72 hours) 09/24/18 09/25/18 09/25/18 21:23 00:30 03:30 Temperature Pulse Rate 91 H Respiratory 18 18 18 Rate Blood Pressure 121/82 09/25/18 09/25/18 09/25/18 07:27 10:00 20:40 Temperature 98.0 F Pulse Rate 71 85 89 Respiratory 18 18 Rate Blood Pressure 132/80 127/85 125/79 09/26/18 09/26/18 09/26/18 00:30 03:30 06:56 Temperature 97.7 F Pulse Rate 100 H Respiratory 18 18 18 Rate Blood Pressure 141/67 09/26/18 09/26/18 09/27/18 10:00 22:00 00:30 Temperature Pulse Rate 108 H 76 Respiratory 18 18 Rate Blood Pressure 125/78 142/86 09/27/18 09/27/18 09/27/18 03:30 06:42 10:00 Temperature 98.6 F Pulse Rate 90 102 H Respiratory 18 18 Rate Blood Pressure 115/82 127/70 Laboratory Tests 09/19/18 09/19/18 08:30 08:30 Hep C Ab Diagnostic <0.1 HIV 1&2 Antibody Screen Negative HIV P24 Antigen Negative NAD PLAN:TO FOLLOW UP WITH PSYCH RE:HALAL
[2018-09-27] MEDS: IBUPROFEN 400 MG TABLET (FP) PO PRN (17:06)
--- NOTE | 2018-09-27 18:06 | PN ---
Psychiatric Progress Note Vital Signs: Vital Signs Period Temp Pulse Resp BP Sys/Torres Pulse Ox Last 24 Hr 98.6 F 76-102 18-18 115-142/70-86 Date of Session: 09/27/18 Chief Complaint:: " I can't sleep." HPI: Patient reports difficulty sleeping since admission to rehab. ROS: Significant for bronchial asthma, chronic lumbar pain and a distant history of orthosurgery (left knee in 2012) Current Medications: Active Medications Generic Name Dose Route Start Last Admin Trade Name Freq PRN Reason Stop Dose Admin Acetaminophen 650 mg 09/18/18 11:24 Tylenol - PO Q4H PRN FEVER Al Hydroxide/Mg Hydroxide 30 ml 09/18/18 11:24 Mylanta Oral Suspension - PO Q6H PRN DYSPEPSIA Clonidine 0.1 mg 09/21/18 22:00 09/27/18 10:46 Catapres - PO 0.1 mg BID JOSE DAVID Administration Cyclobenzaprine HCl 10 mg 09/21/18 14:00 09/27/18 14:30 Flexeril - PO 10 mg TID JOSE DAVID Administration Eucalyptus/Menthol/Phenol/Sorbitol 1 each 09/18/18 11:24 Cepastat Lozenge - MM Q4H PRN SORE THROAT Guaifenesin 10 ml 09/18/18 11:24 Robitussin - PO Q6H PRN COUGH Ibuprofen 400 mg 09/18/18 11:24 09/27/18 17:06 Motrin - PO 400 mg Q6H PRN Administration Pain Level 4-6 Lidocaine 1 patch 09/18/18 16:15 09/27/18 10:46 Lidoderm Patch - TP 1 patch DAILY JOSE DAVID Administration Loperamide HCl 4 mg 09/18/18 11:24 Imodium - PO Q6H PRN DIARRHEA Magnesium Citrate 300 ml 09/18/18 11:24 Citroma - PO Q48H PRN CONSTIPATION Magnesium Hydroxide 30 ml 09/18/18 11:24 Milk Of Magnesia - PO DAILY PRN CONSTIPATION Melatonin 5 mg 09/18/18 22:00 09/18/18 21:50 Melatonin PO 5 mg HS PRN Administration INSOMNIA Methyl Salicylate 1 applic 09/26/18 22:00 09/26/18 22:00 [place] - TP 1 applic HS JOSE DAVID Administration Mirtazapine 30 mg 09/19/18 22:00 09/26/18 21:59 Remeron - PO 30 mg HS JOSE DAVID Administration Miscellaneous 1 each 09/19/18 22:00 09/26/18 21:59 Lidoderm Patch Removal MC Not Given DAILY@2200 JOSE DAVID Nicotine 14 mg 09/18/18 11:24 09/27/18 10:47 Nicoderm Patch - TD 14 mg DAILY PRN Administration WITHDRAWAL(CONT SUBST) Nicotine Polacrilex 2 mg 09/18/18 11:24 Nicorette Gum - BUC Q2H PRN NICOTINE REPLACEMENT RX Multivit/Folic Acid/Iron 1 tab 09/19/18 10:00 09/27/18 10:46 Vitamins (Sjr) - PO 1 tab DAILY JOSE DAVID Administration Pseudoephedrine/Triprolidine 1 combo 09/18/18 11:24 09/20/18 21:58 Actifed - PO 1 combo TID PRN Administration NASAL CONGESTION Thiamine HCl 100 mg 09/18/18 22:00 09/26/18 21:59 Vitamin B1 - PO 100 mg HS JOSE DAVID Administration Tolnaftate 1 applic 09/21/18 11:00 09/27/18 10:46 Tinactin 1% Cream - TP Not Given BID JOSE DAVID Medication(s) Change(s): Yes. Will add Belsomra 10mg qhs prn. Current Side Effect: No Lab tests ordered: No Lab tests reviewed: Yes Provider note:: Patient with a history of MDD, opioid and cocaine dependence. Dr. Abernathy's note read and appreciated. Patient c/o difficulty sleeping at night. He is currently prescribed mirtzapine 30mg. Will add Belsomra 10mg qhs prn. Benefits and side effects discussed. Verbal consent given. Total face to face time:: 25 Mental Status Exam - Mental Status Exam Alert and Oriented to: Time, Place, Person Cognitive Function: Good Patient Appearance: Well Groomed Mood: Euthymic Affect: Appropriate Patient Behavior: Appropriate, Cooperative Speech Pattern: Clear, Appropriate Voice Loudness: Normal Thought Process: Intact, Goal Oriented Thought Disorder: Not Present Hallucinations: Denies Suicidal Ideation: Denies Homicidal Ideation: Denies Insight/Judgement: Poor Sleep: Poorly Appetite: Fair Muscle strength/Tone: Normal Gait/Station: Normal Psychiatric Treatment Plan - Problem List (1) Cocaine dependence Current Visit: Yes (2) Opioid dependence Current Visit: Yes (3) Substance induced mood disorder Current Visit: Yes (4) Substance-induced sleep disorder Current Visit: Yes (5) MDD (major depressive disorder), recurrent episode, moderate Current Visit: Yes (6) Nicotine dependence Current Visit: Yes
[2018-09-27] MEDS: MELATONIN 5 MG TABLETS PO PRN (21:50)
[2018-09-27] MEDS: MIRTAZAPINE 30 MG TABLET (FP) PO SCH (21:50)
[2018-09-27] MEDS: SUVOREXANT 10 MG TABLET PO PRN (21:50)
[2018-09-27] MEDS: THIAMINE HCL 100 MG TABLET (FP) PO SCH (21:51)
[2018-09-27] MEDS: LIDOCAINE PATCH REMOVAL MC SCH (21:51)
[2018-09-27] MEDS: METHYL SALICYLATE/MENTHOL OINT 30 GM TUBE TP SCH (21:54)
[2018-09-28] MEDS: CYCLOBENZAPRINE HCL 10 MG TABLET (FP) PO SCH ×3 (06:40→21:55)
[2018-09-28] MEDS: LIDOCAINE 5% TOPICAL PATCH TP SCH (10:41)
[2018-09-28] MEDS: TOLNAFTATE 1% CREAM 15 GM TUBE TP SCH ×2 (10:42→21:55)
[2018-09-28] MEDS: PRENATAL VITAMINS W/ FOLIC ACID TABLET (FP) PO SCH (10:42)
[2018-09-28] MEDS: cloNIDine HCL 0.1 MG TABLET PO SCH ×2 (10:42→21:55)
[2018-09-28] MEDS: NICOTINE 14 MG/24 HOURS TOPICAL PATCH TD PRN (10:42)
[2018-09-28] MEDS: SUVOREXANT 10 MG TABLET PO PRN (21:54)
[2018-09-28] MEDS: MIRTAZAPINE 30 MG TABLET (FP) PO SCH (21:55)
[2018-09-28] MEDS: THIAMINE HCL 100 MG TABLET (FP) PO SCH (21:55)
[2018-09-28] MEDS: LIDOCAINE PATCH REMOVAL MC SCH (21:56)
[2018-09-28] MEDS: METHYL SALICYLATE/MENTHOL OINT 30 GM TUBE TP SCH (21:56)
[2018-09-29] MEDS: CYCLOBENZAPRINE HCL 10 MG TABLET (FP) PO SCH ×3 (07:00→21:48)
[2018-09-29] MEDS: cloNIDine HCL 0.1 MG TABLET PO SCH ×2 (10:40→21:48)
[2018-09-29] MEDS: PRENATAL VITAMINS W/ FOLIC ACID TABLET (FP) PO SCH (10:40)
[2018-09-29] MEDS: LIDOCAINE 5% TOPICAL PATCH TP SCH (10:41)
[2018-09-29] MEDS: NICOTINE 14 MG/24 HOURS TOPICAL PATCH TD PRN (10:41)
[2018-09-29] MEDS: TOLNAFTATE 1% CREAM 15 GM TUBE TP SCH ×2 (10:41→21:51)
[2018-09-29] MEDS: MIRTAZAPINE 30 MG TABLET (FP) PO SCH (21:48)
[2018-09-29] MEDS: P-EPHED 60MG/TRIPROLIDI 2.5MG TABLET PO PRN (21:48)
[2018-09-29] MEDS: MELATONIN 5 MG TABLETS PO PRN (21:48)
[2018-09-29] MEDS: SUVOREXANT 10 MG TABLET PO PRN (21:49)
[2018-09-29] MEDS: METHYL SALICYLATE/MENTHOL OINT 30 GM TUBE TP SCH (21:51)
[2018-09-29] MEDS: THIAMINE HCL 100 MG TABLET (FP) PO SCH (21:52)
[2018-09-29] MEDS: LIDOCAINE PATCH REMOVAL MC SCH (21:52)
[2018-09-30] MEDS: CYCLOBENZAPRINE HCL 10 MG TABLET (FP) PO SCH ×3 (06:47→21:57)
[2018-09-30] MEDS: PRENATAL VITAMINS W/ FOLIC ACID TABLET (FP) PO SCH (10:46)
[2018-09-30] MEDS: IBUPROFEN 400 MG TABLET (FP) PO PRN ×3 (10:46→22:01)
[2018-09-30] MEDS: NICOTINE 14 MG/24 HOURS TOPICAL PATCH TD PRN (10:47)
[2018-09-30] MEDS: LIDOCAINE 5% TOPICAL PATCH TP SCH (10:47)
[2018-09-30] MEDS: cloNIDine HCL 0.1 MG TABLET PO SCH ×2 (10:48→21:57)
[2018-09-30] MEDS: TOLNAFTATE 1% CREAM 15 GM TUBE TP SCH ×2 (10:48→21:58)
--- NOTE | 2018-09-30 16:28 | PN ---
S Progress Note Note: Psychiatry Attending's note (coverage) : Called to renew suvorexant. Chart reviewed. Medication is confirmed. No report of adverse effects. Patient is agreeable with continuation of the drug. Belsomra 10 mg po hs prn. Renewed.
[2018-09-30] MEDS: MIRTAZAPINE 30 MG TABLET (FP) PO SCH (21:56)
[2018-09-30] MEDS: LIDOCAINE PATCH REMOVAL MC SCH (21:57)
[2018-09-30] MEDS: METHYL SALICYLATE/MENTHOL OINT 30 GM TUBE TP SCH (21:58)
[2018-09-30] MEDS: THIAMINE HCL 100 MG TABLET (FP) PO SCH (21:58)
[2018-09-30] MEDS ORDERED: SUVOREXANT 10 MG TABLET PO PRN (22:00)
[2018-09-30] MEDS: SUVOREXANT 10 MG TABLET PO PRN (22:00)
[2018-10-01] MEDS: CYCLOBENZAPRINE HCL 10 MG TABLET (FP) PO SCH ×3 (06:25→23:30)
[2018-10-01] MEDS ORDERED: SIMETHICONE 80 MG TAB.CHEW (FP) PO PRN (09:14)
[2018-10-01] MEDS: LIDOCAINE 5% TOPICAL PATCH TP SCH (09:35)
[2018-10-01] MEDS: PRENATAL VITAMINS W/ FOLIC ACID TABLET (FP) PO SCH (09:36)
[2018-10-01] MEDS: TOLNAFTATE 1% CREAM 15 GM TUBE TP SCH ×2 (09:36→23:31)
[2018-10-01] MEDS: cloNIDine HCL 0.1 MG TABLET PO SCH ×2 (09:37→23:30)
[2018-10-01] MEDS: NICOTINE 14 MG/24 HOURS TOPICAL PATCH TD PRN (09:39)
[2018-10-01] MEDS ORDERED: ASPIRIN 81 MG CHEWABLE TABLETS PO ONE (13:17)
--- NOTE | 2018-10-01 13:17 | PN ---
[facility] Progress Note Note: TC from RN Maribell [place] that pt c/o SOB and chest pain x 3 days. Simethicone ordered but pt reported no relief . S-pt states pain is 9/10 on the R side which is relieved slightly by lying on his R side. O - He is able to make complete sentences, breath sounds is present and clear. Pt however is slightly using accessory muscles to breathe and O2 sat is 92% on RA. A - R/o PE P - In view of pt's hx of blood clot in lung x 2016, pt will be sent to ER for further eval. EKG will be done and Aspirin 162mg will be given prior to transfer. Pt is aware of POC and in agreement. Nursing staff also aware.
[2018-10-01 14:04] VITALS: BP 117/78; PULSE 105; TEMP 98.1
[2018-10-01] MEDS: MIRTAZAPINE 30 MG TABLET (FP) PO SCH (23:30)
[2018-10-01] MEDS: METHYL SALICYLATE/MENTHOL OINT 30 GM TUBE TP SCH (23:30)
[2018-10-01] MEDS: LIDOCAINE PATCH REMOVAL MC SCH (23:30)
[2018-10-01] MEDS: THIAMINE HCL 100 MG TABLET (FP) PO SCH (23:31)
--- NOTE | 2018-10-01 23:46 | EKG ---
Test Reason : Blood Pressure : / mmHG Vent. Rate : 093 BPM Atrial Rate : 093 BPM P-R Int : 132 ms QRS Dur : 080 ms QT Int : 338 ms P-R-T Axes : 068 062 022 degrees QTc Int : 420 ms NORMAL SINUS RHYTHM POSSIBLE LEFT ATRIAL ENLARGEMENT BORDERLINE ECG WHEN COMPARED WITH ECG OF 13-SEP-2018 02:26, VENT. RATE HAS INCREASED BY 43 BPM Confirmed by PREMA CRUZ MD ([id number]) on 10/01/2018 11:45:44 PM Referred By: Confirmed By:PREMA CRUZ MD
[2018-10-02] MEDS: CYCLOBENZAPRINE HCL 10 MG TABLET (FP) PO SCH (07:10)
== END 2018-10-02 | disposition home or self-care (01) | DRG 772 ==
LOC: YASAS 13:23 → Y5N 13:24
PROVIDERS: ADMIT Neuromusculoskeletal Medicine & OMM; ATTEND Neuromusculoskeletal Medicine & OMM
PROC: HZ42ZZZ Group Counseling for Substance Abuse Treatment, Cognitive-Behavioral (ICD-10-PCS; principal; 2018-09-18)
DX: F11.20 Opioid dependence, uncomplicated (principal); F14.20 Cocaine dependence, uncomplicated; F17.210 Nicotine dependence, cigarettes, uncomplicated; F19.24 Other psychoactive substance dependence with psychoactive substance-induced mood disorder; F19.282 Other psychoactive substance dependence with psychoactive substance-induced sleep disorder; F33.1 Major depressive disorder, recurrent, moderate; J45.909 Unspecified asthma, uncomplicated; M54.5 Low back pain; R07.9 Chest pain, unspecified; R06.02 Shortness of breath
CPT/HCPCS: 36415; 86803; 87389; 93005; 93010; J0735

== ENCOUNTER 2018-10-01 14:07 | Observation (INO) | payer OTHER | END 2018-10-02 18:00 | disposition short-term general hospital (02) | LOC: JER 14:07 → JERBED 18:34 ==

== ENCOUNTER 2018-10-02 19:15 | Inpatient (IN) | payer OTHER ==
[2018-10-02 21:35] VITALS: BMI 25.1
[2018-10-02] MEDS ORDERED: ALBUTEROL SO4 2.5/IPRATROPIUM 0.5 INH SOL 3 ML VIAL.NEB. NEB PRN (21:39)
[2018-10-02] MEDS ORDERED: ALBUTEROL SO4 8 GM HFA INHALER IH PRN (21:39)
--- NOTE | 2018-10-02 21:47 | HP ---
[facility] Rehab Assess/Revision - Admission History Admitted to Rehab from: Emergency Department (patient was evaluated at [facility] - 10/02/18 for chest pain) Date of Admission to Rehab: 10/02/18 - Vital signs Vital Signs: Vital Signs Period Temp Pulse Resp BP Sys/Torres Pulse Ox Last 24 Hr 96.9 F 84 18 120/85 - Findings Detox History & Physical reviewed: Yes Concur with findings: Yes Comments/Additional Findings: Patient is a 53 yo male who returns to [facility] to continue rehab services for opiates, alcohol and cocaine. Patient was evaluated at [facility] for chest pain, doppler and EKG WNL, recommended patient to follow up with rating specialist outpatient. Elder Aox3, no distres, medically stable to continue rehabilitation. Inpatient Rehab Admission - Rehab Decision to Admit Inpatient rehab admission?: Yes - Initial Determination Are CD services needed?: Yes Free of communicable disease: Yes Not in need of hospitalization: Yes - Rehab Admission Criteria Previous failed treatment: Yes Poor recovery environment: Yes Comorbidities: Yes Lacks judgement: Yes Patient is meeting Inpatient Rehab admission criteria:: Yes
[2018-10-02] MEDS ORDERED: LOPERAMIDE HCL 2 MG CAPSULE PO PRN (21:50)
[2018-10-02] MEDS ORDERED: MAGNESIUM HYDROX 2400MG/30ML ORAL SUSPENSION 30 ML CUP PO PRN (21:50)
[2018-10-02] MEDS ORDERED: IBUPROFEN 400 MG TABLET (FP) PO PRN (21:50)
[2018-10-02] MEDS ORDERED: MAG HYDROX/AL HYDROX/SIMETH 30 ML UNIT-DOSE CUP PO PRN (21:50)
[2018-10-02] MEDS ORDERED: NICOTINE POLACRILEX 2 MG GUM BC PRN (21:50)
[2018-10-02] MEDS ORDERED: MAGNESIUM CITRATE 300 ML BOTTLE PO PRN (21:50)
[2018-10-02] MEDS: THIAMINE HCL 100 MG TABLET (FP) PO SCH (23:35)
[2018-10-02] MEDS: MELATONIN 5 MG TABLETS PO PRN (23:35)
[2018-10-03] MEDS: ACETAMINOPHEN 325 MG TABLET (FP) PO PRN (06:31)
[2018-10-03] MEDS: PRENATAL VITAMINS W/ FOLIC ACID TABLET (FP) PO SCH (10:41)
[2018-10-03 15:55] LABS: ALBUMIN 4.2 g/dl (3.4-5.0); ALK PHOS 95 U/L (45-117); ANION GAP 12 MMOL/L (8-16); BILIRUBIN,TOTAL 0.1 mg/dL (0.2-1); BLOOD UREA NITROGEN 22 mg/dL (7-18); CALCIUM 9.1 mg/dL (8.5-10.1); CHLORIDE 106 mmol/L (98-107); CO2 21 mmol/L (21-32); CREATININE 1.2 mg/dL (0.55-1.3); GLUCOSE,RANDOM 179 mg/dL (74-106); SGOT/AST 22 U/L (15-37); SGPT/ALT 51 U/L (13-61); SODIUM 138 mmol/L (136-145); TOT PROT 7.5 g/dl (6.4-8.2)
[2018-10-03] MEDS: THIAMINE HCL 100 MG TABLET (FP) PO SCH (21:45)
[2018-10-03] MEDS: MELATONIN 5 MG TABLETS PO PRN (21:46)
[2018-10-04] MEDS: PRENATAL VITAMINS W/ FOLIC ACID TABLET (FP) PO SCH (10:49)
[2018-10-04] MEDS: CYCLOBENZAPRINE HCL 10 MG TABLET (FP) PO SCH ×2 (13:38→21:46)
[2018-10-04] MEDS: LIDOCAINE 5% TOPICAL PATCH TP SCH (13:38)
[2018-10-04] MEDS: THIAMINE HCL 100 MG TABLET (FP) PO SCH (21:45)
[2018-10-04] MEDS: LIDOCAINE PATCH REMOVAL MC SCH (21:45)
[2018-10-04] MEDS: MELATONIN 5 MG TABLETS PO PRN (21:45)
[2018-10-05] MEDS: CYCLOBENZAPRINE HCL 10 MG TABLET (FP) PO SCH (07:22)
[2018-10-05] MEDS: LIDOCAINE 5% TOPICAL PATCH TP SCH (10:13)
[2018-10-05] MEDS: PRENATAL VITAMINS W/ FOLIC ACID TABLET (FP) PO SCH (10:13)
[2018-10-05] MEDS ORDERED: BACLOFEN 10 MG TABLET (FP) PO ONE (11:44)
[2018-10-05] MEDS ORDERED: RANITIDINE HCL 150 MG TABLET (FP) PO ONE (11:45)
[2018-10-05] MEDS ORDERED: IBUPROFEN 400 MG TABLET (FP) PO SCH (12:00)
[2018-10-05] MEDS: IBUPROFEN 600 MG TABLET (FP) PO SCH ×3 (12:11→23:16)
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
[2018-10-05] MEDS: METHYL SALICYLATE/MENTHOL OINT 30 GM TUBE TP SCH ×2 (15:05→21:53)
[2018-10-05] MEDS: BACLOFEN 10 MG TABLET (FP) PO SCH (21:52)
[2018-10-05] MEDS: LIDOCAINE PATCH REMOVAL MC SCH (21:52)
[2018-10-05] MEDS: RANITIDINE HCL 150 MG TABLET (FP) PO SCH (21:52)
[2018-10-05] MEDS: THIAMINE HCL 100 MG TABLET (FP) PO SCH (21:52)
[2018-10-05] MEDS: DOCUSATE SODIUM 100 MG CAPSULE (FP) PO SCH (21:52)
[2018-10-06] MEDS: IBUPROFEN 600 MG TABLET (FP) PO SCH ×3 (06:32→17:06)
[2018-10-06] MEDS: BACLOFEN 10 MG TABLET (FP) PO SCH ×2 (10:52→21:47)
[2018-10-06] MEDS: PRENATAL VITAMINS W/ FOLIC ACID TABLET (FP) PO SCH (10:52)
[2018-10-06] MEDS: DOCUSATE SODIUM 100 MG CAPSULE (FP) PO SCH ×2 (10:52→21:47)
[2018-10-06] MEDS: RANITIDINE HCL 150 MG TABLET (FP) PO SCH ×2 (10:52→21:47)
[2018-10-06] MEDS: METHYL SALICYLATE/MENTHOL OINT 30 GM TUBE TP SCH ×2 (10:52→21:47)
[2018-10-06] MEDS: LIDOCAINE 5% TOPICAL PATCH TP SCH (10:53)
[2018-10-06] MEDS: THIAMINE HCL 100 MG TABLET (FP) PO SCH (21:47)
[2018-10-06] MEDS: LIDOCAINE PATCH REMOVAL MC SCH (21:47)
[2018-10-07] MEDS: IBUPROFEN 600 MG TABLET (FP) PO SCH ×5 (01:31→23:40)
[2018-10-07] MEDS: DOCUSATE SODIUM 100 MG CAPSULE (FP) PO SCH ×2 (10:09→22:01)
[2018-10-07] MEDS: LIDOCAINE 5% TOPICAL PATCH TP SCH (10:09)
[2018-10-07] MEDS: BACLOFEN 10 MG TABLET (FP) PO SCH ×2 (10:09→22:01)
[2018-10-07] MEDS: RANITIDINE HCL 150 MG TABLET (FP) PO SCH ×2 (10:09→22:01)
[2018-10-07] MEDS: METHYL SALICYLATE/MENTHOL OINT 30 GM TUBE TP SCH ×2 (10:09→22:01)
[2018-10-07] MEDS: PRENATAL VITAMINS W/ FOLIC ACID TABLET (FP) PO SCH (10:09)
[2018-10-07] MEDS: THIAMINE HCL 100 MG TABLET (FP) PO SCH (22:01)
[2018-10-07] MEDS: LIDOCAINE PATCH REMOVAL MC SCH (22:02)
[2018-10-08] MEDS: guaiFENesin 200 MG/10 ML 10 ML UNIT-DOSE CUPS PO PRN (06:36)
[2018-10-08] MEDS: MENTHOL/PHENOL 1 EACH UD MM PRN (06:37)
[2018-10-08] MEDS: IBUPROFEN 600 MG TABLET (FP) PO SCH (06:37)
[2018-10-08] MEDS: RANITIDINE HCL 150 MG TABLET (FP) PO SCH ×2 (10:16→22:09)
[2018-10-08] MEDS: BACLOFEN 10 MG TABLET (FP) PO SCH ×2 (10:16→22:09)
[2018-10-08] MEDS: LIDOCAINE 5% TOPICAL PATCH TP SCH (10:16)
[2018-10-08] MEDS: PRENATAL VITAMINS W/ FOLIC ACID TABLET (FP) PO SCH (10:16)
[2018-10-08] MEDS: METHYL SALICYLATE/MENTHOL OINT 30 GM TUBE TP SCH ×2 (10:17→22:09)
[2018-10-08] MEDS: DOCUSATE SODIUM 100 MG CAPSULE (FP) PO SCH ×2 (10:17→22:09)
[2018-10-08] MEDS: THIAMINE HCL 100 MG TABLET (FP) PO SCH (22:09)
[2018-10-08] MEDS: LIDOCAINE PATCH REMOVAL MC SCH (22:09)
[2018-10-09] MEDS: METHYL SALICYLATE/MENTHOL OINT 30 GM TUBE TP SCH ×2 (10:44→21:41)
[2018-10-09] MEDS: RANITIDINE HCL 150 MG TABLET (FP) PO SCH ×2 (10:44→21:39)
[2018-10-09] MEDS: PRENATAL VITAMINS W/ FOLIC ACID TABLET (FP) PO SCH (10:44)
[2018-10-09] MEDS: LIDOCAINE 5% TOPICAL PATCH TP SCH (10:44)
[2018-10-09] MEDS: BACLOFEN 10 MG TABLET (FP) PO SCH ×2 (10:44→21:39)
[2018-10-09] MEDS: DOCUSATE SODIUM 100 MG CAPSULE (FP) PO SCH ×2 (10:44→21:39)
[2018-10-09] MEDS: guaiFENesin 200 MG/10 ML 10 ML UNIT-DOSE CUPS PO PRN ×2 (15:44→21:42)
[2018-10-09] MEDS: MENTHOL/PHENOL 1 EACH UD MM PRN (15:44)
[2018-10-09] MEDS: P-EPHED 60MG/TRIPROLIDI 2.5MG TABLET PO PRN (15:58)
--- NOTE | 2018-10-09 16:02 | PN ---
[facility] Progress Note Note: PT C/O RUNNY NOSE AND COUGH WITH YELLOW SPUTUM WITH HOT/COLD CHILLS. DENIES NAUSEA, VOMITING, DIARRHEA OR HEADACHE. Vital Signs (72 hours) 10/07/18 10/07/18 10/07/18 00:30 03:30 06:59 Temperature Pulse Rate Respiratory 18 18 18 Rate Blood Pressure 10/08/18 10/08/18 10/08/18 00:30 03:30 06:47 Temperature 97.5 F L Pulse Rate 88 Respiratory 18 18 18 Rate Blood Pressure 133/88 10/09/18 10/09/18 10/09/18 00:30 03:30 07:15 Temperature Pulse Rate Respiratory 18 18 18 Rate Blood Pressure CARDIAC S1 S2 LUNGS CTA A:URI PLAN:ACTIFED PRN ROBITUSSIN DM PRN INCREASE PO FLUIDS
[2018-10-09] MEDS: MELATONIN 5 MG TABLETS PO PRN (21:40)
[2018-10-09] MEDS: LIDOCAINE PATCH REMOVAL MC SCH (21:40)
[2018-10-09] MEDS: THIAMINE HCL 100 MG TABLET (FP) PO SCH (21:40)
[2018-10-10] MEDS: P-EPHED 60MG/TRIPROLIDI 2.5MG TABLET PO PRN (06:26)
[2018-10-10] MEDS: guaiFENesin 200 MG/10 ML 10 ML UNIT-DOSE CUPS PO PRN (06:26)
[2018-10-10] MEDS ORDERED: ALBUTEROL SO4 2.5/IPRATROPIUM 0.5 INH SOL 3 ML VIAL.NEB. NEB PRN (10:30)
--- NOTE | 2018-10-10 10:30 | PN ---
S Progress Note Note: PT REPORTS HX OF ASTHMA AND INTERMITTENT SOB WITH THE PRESENT COLD SYMPTOMS OF RUNNY/CONGESTED NOSE, COUGH AND SORE THROAT. HAS NOT USE ALBUTEROL INHALER FOR AWHILE BUT HAS USED NEBULIZER TX WHEN WAS IN THE HOSPITAL ELSEWHERE. PT IS ALERT O X 3. OOB AMBULATING WITH STEADY GAIT. REPORTS SOME RELIEF WITH ACTIFED AND ROBITUSSIN DM. Vital Signs (72 hours) 10/08/18 10/08/18 10/08/18 00:30 03:30 06:47 Temperature 97.5 F L Pulse Rate 88 Respiratory 18 18 18 Rate Blood Pressure 133/88 10/09/18 10/09/18 10/09/18 00:30 03:30 07:15 Temperature Pulse Rate Respiratory 18 18 18 Rate Blood Pressure 10/10/18 10/10/18 00:30 06:58 Temperature 98.3 F Pulse Rate 91 H Respiratory 18 18 Rate Blood Pressure 130/80 Laboratory Tests 10/03/18 10/10/18 10:40 06:30 Sodium 138 Potassium 4.0 Chloride 106 Carbon Dioxide 21 Anion Gap 12 BUN 22 H Creatinine 1.2 Creat Clearance w eGFR 62.86 POC Glucometer 122 Random Glucose 179 H Calcium 9.1 Total Bilirubin 0.1 L AST 22 ALT 51 Alkaline Phosphatase 95 Total Protein 7.5 Albumin 4.2 BGM 122 MG/DL TODAY CARDIAC:S1 S2 RRR LUNGS:CTA, NO WHEEZE OR RHONCHI PLAN:NEBULIZER TX WITH DUONEB PRN DIRECTED ALBUTEROL INHALER 2 PUFFS Q4H PRN CHANGE ACTIFED TO SCHEDULE X 3 DAYS THEN PRN ROBAFEN DM COUGH SYRUP Q6H FOR COUGH x 3 DAYS, THEN PRN D/C ENSURE GIVE GLUCERNA BID
[2018-10-10] MEDS: DOCUSATE SODIUM 100 MG CAPSULE (FP) PO SCH ×2 (10:39→21:56)
[2018-10-10] MEDS: PRENATAL VITAMINS W/ FOLIC ACID TABLET (FP) PO SCH (10:39)
[2018-10-10] MEDS: BACLOFEN 10 MG TABLET (FP) PO SCH ×2 (10:39→21:56)
[2018-10-10] MEDS: METHYL SALICYLATE/MENTHOL OINT 30 GM TUBE TP SCH ×2 (10:39→21:54)
[2018-10-10] MEDS: LIDOCAINE 5% TOPICAL PATCH TP SCH (10:39)
[2018-10-10] MEDS: RANITIDINE HCL 150 MG TABLET (FP) PO SCH ×2 (10:39→21:56)
[2018-10-10] MEDS: guaiFENesin/D-M SUGAR-FREE/ACLHOL-FREE 118 ML BOTTLE PO SCH ×3 (12:01→23:33)
[2018-10-10] MEDS: P-EPHED 60MG/TRIPROLIDI 2.5MG TABLET PO SCH ×2 (13:02→21:56)
[2018-10-10] MEDS: LIDOCAINE PATCH REMOVAL MC SCH (21:54)
[2018-10-10] MEDS: MELATONIN 5 MG TABLETS PO PRN (21:57)
[2018-10-10] MEDS: THIAMINE HCL 100 MG TABLET (FP) PO SCH (21:57)
[2018-10-10] MEDS: ACETAMINOPHEN 325 MG TABLET (FP) PO PRN (21:58)
[2018-10-11] MEDS: guaiFENesin/D-M SUGAR-FREE/ACLHOL-FREE 118 ML BOTTLE PO SCH ×3 (06:18→17:22)
[2018-10-11] MEDS: P-EPHED 60MG/TRIPROLIDI 2.5MG TABLET PO SCH ×3 (06:18→21:43)
[2018-10-11] MEDS: RANITIDINE HCL 150 MG TABLET (FP) PO SCH ×2 (10:36→21:45)
[2018-10-11] MEDS: METHYL SALICYLATE/MENTHOL OINT 30 GM TUBE TP SCH ×2 (10:36→21:43)
[2018-10-11] MEDS: BACLOFEN 10 MG TABLET (FP) PO SCH ×2 (10:36→21:42)
[2018-10-11] MEDS: DOCUSATE SODIUM 100 MG CAPSULE (FP) PO SCH ×2 (10:36→21:42)
[2018-10-11] MEDS: PRENATAL VITAMINS W/ FOLIC ACID TABLET (FP) PO SCH (10:36)
[2018-10-11] MEDS: LIDOCAINE 5% TOPICAL PATCH TP SCH (10:37)
[2018-10-11] MEDS: THIAMINE HCL 100 MG TABLET (FP) PO SCH (21:42)
[2018-10-11] MEDS: MELATONIN 5 MG TABLETS PO PRN (21:43)
[2018-10-11] MEDS: LIDOCAINE PATCH REMOVAL MC SCH (21:43)
[2018-10-12] MEDS: guaiFENesin/D-M SUGAR-FREE/ACLHOL-FREE 118 ML BOTTLE PO SCH ×5 (01:35→23:05)
[2018-10-12] MEDS: P-EPHED 60MG/TRIPROLIDI 2.5MG TABLET PO SCH ×3 (06:47→21:53)
[2018-10-12] MEDS: PRENATAL VITAMINS W/ FOLIC ACID TABLET (FP) PO SCH (10:21)
[2018-10-12] MEDS: LIDOCAINE 5% TOPICAL PATCH TP SCH (10:22)
[2018-10-12] MEDS: RANITIDINE HCL 150 MG TABLET (FP) PO SCH ×2 (10:22→21:52)
[2018-10-12] MEDS: DOCUSATE SODIUM 100 MG CAPSULE (FP) PO SCH ×2 (10:22→21:52)
[2018-10-12] MEDS: METHYL SALICYLATE/MENTHOL OINT 30 GM TUBE TP SCH ×2 (10:22→21:53)
[2018-10-12] MEDS: BACLOFEN 10 MG TABLET (FP) PO SCH ×2 (10:22→21:52)
[2018-10-12] MEDS: MELATONIN 5 MG TABLETS PO PRN (21:53)
[2018-10-12] MEDS: LIDOCAINE PATCH REMOVAL MC SCH (21:53)
[2018-10-12] MEDS: THIAMINE HCL 100 MG TABLET (FP) PO SCH (21:53)
[2018-10-13] MEDS: P-EPHED 60MG/TRIPROLIDI 2.5MG TABLET PO SCH (06:29)
[2018-10-13] MEDS: guaiFENesin/D-M SUGAR-FREE/ACLHOL-FREE 118 ML BOTTLE PO SCH (06:29)
[2018-10-13] MEDS: DOCUSATE SODIUM 100 MG CAPSULE (FP) PO SCH ×2 (10:57→21:54)
[2018-10-13] MEDS: PRENATAL VITAMINS W/ FOLIC ACID TABLET (FP) PO SCH (10:57)
[2018-10-13] MEDS: RANITIDINE HCL 150 MG TABLET (FP) PO SCH ×2 (10:57→21:52)
[2018-10-13] MEDS: BACLOFEN 10 MG TABLET (FP) PO SCH ×2 (10:57→21:52)
[2018-10-13] MEDS: LIDOCAINE 5% TOPICAL PATCH TP SCH (10:57)
[2018-10-13] MEDS: METHYL SALICYLATE/MENTHOL OINT 30 GM TUBE TP SCH ×2 (10:57→21:54)
[2018-10-13] MEDS ORDERED: P-EPHED 60MG/TRIPROLIDI 2.5MG TABLET PO PRN (12:00)
[2018-10-13] MEDS ORDERED: guaiFENesin 200 MG/10 ML 10 ML UNIT-DOSE CUPS PO PRN (12:01)
[2018-10-13] MEDS: THIAMINE HCL 100 MG TABLET (FP) PO SCH (21:52)
[2018-10-13] MEDS: MELATONIN 5 MG TABLETS PO PRN (21:54)
[2018-10-13] MEDS: LIDOCAINE PATCH REMOVAL MC SCH (21:54)
[2018-10-14] MEDS: PRENATAL VITAMINS W/ FOLIC ACID TABLET (FP) PO SCH (10:26)
[2018-10-14] MEDS: DOCUSATE SODIUM 100 MG CAPSULE (FP) PO SCH ×2 (10:26→21:59)
[2018-10-14] MEDS: LIDOCAINE 5% TOPICAL PATCH TP SCH (10:26)
[2018-10-14] MEDS: METHYL SALICYLATE/MENTHOL OINT 30 GM TUBE TP SCH ×2 (10:26→22:00)
[2018-10-14] MEDS: RANITIDINE HCL 150 MG TABLET (FP) PO SCH ×2 (10:26→21:57)
[2018-10-14] MEDS: BACLOFEN 10 MG TABLET (FP) PO SCH ×2 (10:26→21:59)
[2018-10-14] MEDS: ACETAMINOPHEN 325 MG TABLET (FP) PO PRN (21:58)
[2018-10-14] MEDS: THIAMINE HCL 100 MG TABLET (FP) PO SCH (21:59)
[2018-10-14] MEDS: MELATONIN 5 MG TABLETS PO PRN (21:59)
[2018-10-14] MEDS: LIDOCAINE PATCH REMOVAL MC SCH (22:00)
[2018-10-15] MEDS: RANITIDINE HCL 150 MG TABLET (FP) PO SCH ×2 (10:25→21:40)
[2018-10-15] MEDS: METHYL SALICYLATE/MENTHOL OINT 30 GM TUBE TP SCH ×2 (10:25→21:41)
[2018-10-15] MEDS: PRENATAL VITAMINS W/ FOLIC ACID TABLET (FP) PO SCH (10:25)
[2018-10-15] MEDS: BACLOFEN 10 MG TABLET (FP) PO SCH ×2 (10:25→21:40)
[2018-10-15] MEDS: DOCUSATE SODIUM 100 MG CAPSULE (FP) PO SCH ×2 (10:25→21:40)
[2018-10-15] MEDS: LIDOCAINE 5% TOPICAL PATCH TP SCH (10:26)
[2018-10-15] MEDS: THIAMINE HCL 100 MG TABLET (FP) PO SCH (21:40)
[2018-10-15] MEDS: LIDOCAINE PATCH REMOVAL MC SCH (21:41)
[2018-10-15] MEDS: MELATONIN 5 MG TABLETS PO PRN (21:41)
[2018-10-16 06:49] VITALS: BP 118/91; PULSE 99; TEMP 97.8
--- NOTE | 2018-10-16 09:27 | PN ---
[facility] Progress Note Note: PT COMPLETED REHAB AND DISCHARGED TODAY. PT MET WITH HIS COUNSELOR AND HAS BEEN REFERRED TO [facility] ON [address] [place], [place] AND [facility] ON [address], [place] FOR FOLLOW UP AFTERCARE. PT REPORTS HE HAS NO PCP BUT WILL SET UP ONE WITH COUNSELOR AT HIS NEXT REFERRAL PLACE TODAY. ALERT O X 3. Home Medications Medication Instructions Recorded Alprazolam [Xanax] 2 mg PO BID 09/18/18 Mirtazapine [Remeron -] 30 mg PO HS 09/18/18 Acetaminophen [Tylenol] 650 mg PO Q6H PRN #60 tablet 10/02/18 Ibuprofen 400 mg PO Q8H PRN #30 tablet 10/02/18 Naloxone HCl [Narcan] 4 mg NS ONCE #1 spray 10/16/18 Vital Signs - 24 hr 10/16/18 10/16/18 10/16/18 00:30 03:30 06:48 Temperature 97.8 F Pulse Rate 99 H Respiratory 18 18 18 Rate Blood Pressure 118/91 Laboratory Tests 10/03/18 10/10/18 10/11/18 10:40 06:30 06:11 Sodium 138 Potassium 4.0 Chloride 106 Carbon Dioxide 21 Anion Gap 12 BUN 22 H Creatinine 1.2 Creat Clearance w eGFR 62.86 POC Glucometer 122 126 Random Glucose 179 H Calcium 9.1 Total Bilirubin 0.1 L AST 22 ALT 51 Alkaline Phosphatase 95 Total Protein 7.5 Albumin 4.2 10/12/18 10/13/18 10/14/18 06:38 06:28 06:38 Sodium Potassium Chloride Carbon Dioxide Anion Gap BUN Creatinine Creat Clearance w eGFR POC Glucometer 122 126 126 Random Glucose Calcium Total Bilirubin AST ALT Alkaline Phosphatase Total Protein Albumin 10/16/18 06:02 Sodium Potassium Chloride Carbon Dioxide Anion Gap BUN Creatinine Creat Clearance w eGFR POC Glucometer 111 Random Glucose Calcium Total Bilirubin AST ALT Alkaline Phosphatase Total Protein Albumin NAD MEDICALLY STABLE. PLAN:DISCUSSED WITH PATIENT ABOUT DIET AND LIFESTYLE MANAGEMENT AND NEED TO MAKE APPOINTMENT WITH A PCP WITHIN 1-2 WEEKS AFTER DISCHARGE TODAY. FOLLOW UP WITH CD AFTERCARE RECOMMENDED ABOVE.
[2018-10-16] MEDS: RANITIDINE HCL 150 MG TABLET (FP) PO SCH (09:33)
[2018-10-16] MEDS: BACLOFEN 10 MG TABLET (FP) PO SCH (09:33)
[2018-10-16] MEDS: LIDOCAINE 5% TOPICAL PATCH TP SCH (09:33)
[2018-10-16] MEDS: METHYL SALICYLATE/MENTHOL OINT 30 GM TUBE TP SCH (09:33)
[2018-10-16] MEDS: DOCUSATE SODIUM 100 MG CAPSULE (FP) PO SCH (09:33)
[2018-10-16] MEDS: PRENATAL VITAMINS W/ FOLIC ACID TABLET (FP) PO SCH (09:33)
== END 2018-10-16 09:35 | disposition home or self-care (01) | DRG 772 ==
LOC: YASAS 19:15 → Y5N 22:12
PROVIDERS: ADMIT Neuromusculoskeletal Medicine & OMM; ATTEND Neuromusculoskeletal Medicine & OMM
PROC: HZ42ZZZ Group Counseling for Substance Abuse Treatment, Cognitive-Behavioral (ICD-10-PCS; principal; 2018-10-02)
DX: F11.20 Opioid dependence, uncomplicated (principal); F14.20 Cocaine dependence, uncomplicated; F17.210 Nicotine dependence, cigarettes, uncomplicated; J06.9 Acute upper respiratory infection, unspecified; J45.909 Unspecified asthma, uncomplicated; M79.10 Myalgia, unspecified site
CPT/HCPCS: 36415; 71045-TC-FY; 71101-TC-RT-FY; 71275-TC; 73060-TC-RT-FY; 73070-TC-RT-FY; 80048; 80053; 82550; 82553; 82962; 83735; 84100; 84484; 85025; 85027; 85610; 93005; 93010; 93970-TC; 96374; 99285-25; G0378; J0131; J0475